=== PATIENT | female | born 1970 | race Caucasian/White ===

== ENCOUNTER 2018-06-07 08:49 | Inpatient (IN) ==
[2018-06-07] MEDS ORDERED: HydrALAZINE HCL 20 MG/ML VIAL IV PRN (09:00)
--- NOTE | 2018-06-07 09:12 | CT Scan Report ---
CT head/brain wo con CLINICAL HISTORY: Pt c/o facial droop COMPARISON STUDY: No previous studies for comparison. TECHNIQUE: Axial CT of the brain is performed from the vertex to the skull base. IV contrast was not administered for this examination. A dose lowering technique was utilized adhering to the principles of ALARA. CT DOSE: 788.63 mGycm FINDINGS: No intra or extra-axial mass lesions are visualized. There is no CT evidence of acute cortical infarc tion. There is no evidence of midline shift. There is no acute hemorrhage. No calvarial fractures ar e visualized. There are patchy white matter hypodensities likely on a small vessel basis. There is no evidence of pathologic ventricular dilatation. There is a probable lacunar infarct in the left lentiform nucleus. There are minor inflammatory changes within the ethmoid sinuses. IMPRESSION: 1. No acute intracranial findings 2. White matter disease slightly greater than expected given the patient's age 3. Suspected lacunar infarct within the left basal ganglia 4. No evidence of acute hemorrhage 5. If symptoms persist, an MRI the brain might be considered in follow-up. Electronically signed by: Alejandro Estes M.D. 06/07/2018 9:10 AM
[2018-06-07] MEDS ORDERED: RECOMBINANT IV STA ×2 (09:16)
[2018-06-07] MEDS ORDERED: ALTEPLASE For Stroke IV STA (09:16)
[2018-06-07] MEDS ORDERED: ALTEPLASE IV STA ×2 (09:16)
[2018-06-07] MEDS ORDERED: ASPIRIN CHEW 324 MG PO STA (09:20)
[2018-06-07] MEDS: LABETALOL HCL IV 5 MG/ML 20ML IV PRN ×2 (09:21→12:23)
[2018-06-07] MEDS ORDERED: OPTIRAY 320 125ml IV PRN (09:21)
[2018-06-07 09:22] LABS: Basophils # (auto) 0.02 K/uL (0-0.2); Basophils % (auto) 0.2 %; Eosinophils # (auto) 0.14 K/uL (0-0.5); Eosinophils % (auto) 1.2 %; Hematocrit (blood only) 44.6 % (37-47); Hemoglobin 15.4 g/dL (12.0-16.0); Immature Granulocytes # (auto) 0.03 K/uL (0.00-0.02); Immature Granulocytes % (auto) 0.3 %; Lymphocytes # (auto) 2.68 K/uL (1.2-3.4); Lymphocytes % (auto) 23.9 %; Mean Corpuscular Hgb Conc 34.5 g/dL (32-36); Mean Corpuscular Volume 93.3 fL (80-100); Mean Platelet Volume 10.5 fL (7.4-10.4); Monocytes # (auto) 0.68 K/uL (0.11-0.59); Monocytes % (auto) 6.1 %; Neutrophils # (auto) 7.68 K/uL (1.4-6.5); Neutrophils % (auto) 68.3 %; Platelet Count 242 K/uL (130-400); RDW Standard Deviation 44.6 fL (36.4-46.3); Red Blood Count 4.78 M/uL (4.2-5.4); White Blood Count 11.23 K/uL (4.8-10.8)
[2018-06-07] MEDS ORDERED: MAGNESIUM SULFATE / D5W 1 GM/100 ML BAG IV ONE (09:26)
--- NOTE | 2018-06-07 09:34 | XRay Report ---
XR chest 1V portable CLINICAL HISTORY: Pt c/o AMS dyspnea COMPARISON STUDY: No previous studies for comparison. FINDINGS: The bones soft tissues and hemidiaphragms are normal. The cardiomediastinal silhouette is n ormal. The lungs are clear. The pulmonary vasculature is normal. IMPRESSION: Negative chest. The above report was generated using voice recognition software. It may contain grammatical, syntax or spelling errors. Electronically signed by: Jerald Villavicencio M.D. 06/07/2018 9:33 AM
--- NOTE | 2018-06-07 09:36 | CT Scan Report ---
HEAD & NECK CTA HISTORY: Altered mental status. TECHNIQUE: Multiaxial CT images of the head were performed following the intravenous administration o f contrast to evaluate the major cerebral vessels. Multiaxial CT images of the neck were also perform ed following the intravenous administration of contrast to evaluate the major cervical vessels. Maxim um intensity projection images were also obtained. A dose lowering technique was utilized adhering to the principles of ALARA. COMPARISON: Head CT 06/07/2018. FINDINGS: There is no mass, hematoma, midline shift, or acute infarct. Visualized intracranial internal carotid artery, distal vertebral arteries, and basilar artery are widely patent. There is no significant gia nosis, occlusion, or aneurysm seen within the bilateral ACAs, MCAs, or figure clerk. The major dural venous s inuses appear patent. Incidental note is made of a single A2 segment which is considered a normal ivonne iant. Mild narrowing of approximately 30 % within the proximal portion of the cavernous segment of th e left internal carotid artery due to the noncalcified plaque. The aortic arch and proximal great vessels are widely patent. There is no significant stenosis, occ lusion, or dissection identified within the bilateral common carotid, internal carotid, or vertebral arteries. There is 1.5 cm right parotid gland nodule. The lungs are clear. Slightly hypoplastic right vertebral artery. IMPRESSION: 1. No significant stenosis, occlusion, or aneurysm within the [place]. 2. Mild narrowing within the proximal portion of the cavernous segment of the left internal carotid a rtery. Otherwise, no significant stenosis, occlusion, or dissection identified within the remaining c arotid or vertebral arteries. 3. A 1.5 cm right parotid gland nodule. Follow-up nonemergent ENT consultation recommended for [facility] evaluation. Electronically signed by: Chico Hansen M.D. 06/07/2018 9:35 AM
--- NOTE | 2018-06-07 09:36 | CT Scan Report ---
HEAD & NECK CTA HISTORY: Altered mental status. TECHNIQUE: Multiaxial CT images of the head were performed following the intravenous administration o f contrast to evaluate the major cerebral vessels. Multiaxial CT images of the neck were also perform ed following the intravenous administration of contrast to evaluate the major cervical vessels. Maxim um intensity projection images were also obtained. A dose lowering technique was utilized adhering to the principles of ALARA. COMPARISON: Head CT 06/07/2018. FINDINGS: There is no mass, hematoma, midline shift, or acute infarct. Visualized intracranial internal carotid artery, distal vertebral arteries, and basilar artery are widely patent. 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 The major dural venous s inuses appear patent. Incidental note is made of a single A2 segment which is considered a normal ivonne iant. Mild narrowing of approximately 30 % within the proximal portion of the cavernous segment of th e left internal carotid artery due to the noncalcified plaque. The aortic arch and proximal great vessels are widely patent. There is no significant stenosis, occ lusion, or dissection identified within the bilateral common carotid, internal carotid, or vertebral arteries. There is 1.5 cm right parotid gland nodule. The lungs are clear. Slightly hypoplastic right vertebral artery. IMPRESSION: 1. No significant stenosis, occlusion, or aneurysm within the [place]. 2. Mild narrowing within the proximal portion of the cavernous segment of the left internal carotid a rtery. Otherwise, no significant stenosis, occlusion, or dissection identified within the remaining c arotid or vertebral arteries. 3. A 1.5 cm right parotid gland nodule. Follow-up nonemergent ENT consultation recommended for [facility] evaluation. Electronically signed by: Chico Hansen M.D. 06/07/2018 9:35 AM
[2018-06-07 09:37] LABS: Partial Thromboplastin Time 27.6 Seconds (21.0-31.0); Prothrombin Time 9.8 Seconds (9.0-12.0)
[2018-06-07 09:39] LABS: Alanine Aminotransferase 26 U/L (12-78); Albumin Level 3.9 gm/dl (3.4-5.0); Aspartate Aminotransferase 13 U/L (15-37); BUN Creatinine Ratio 18.6 (10-20); Blood Urea Nitrogen 19 mg/dl (7-18); Calcium 9.2 mg/dl (8.5-10.1); Carbon Dioxide 28 mmol/L (21-32); Chloride 107 mmol/L (98-107); Creatinine Clr Calc Pharmacy 80.6 ml/min; Est GFR (African American) 76.4; Est GFR (Non-African American) 65.9; Glucose 104 mg/dl (70-99); Magnesium 2.2 mg/dl (1.8-2.4); Sodium 139 mmol/L (136-145)
[2018-06-07 09:44] LABS: Albumin Globulin Ratio 0.9 (0.9-2); Alkaline Phosphatase 111 U/L (45-117); Bilirubin,Total 0.2 mg/dl (0.2-1); Creatine Kinase MB < 1.0 ng/ml (0.5-3.6); Globulin 4.2 gm/dl (2.5-4.0); Total Protein 8.1 gm/dl (6.4-8.2); Troponin I < 0.015 ng/ml (0-0.045)
--- NOTE | 2018-06-07 09:52 | History & Physical Report ---
Date of Service June 07, 2018 Assessment & Plan (1) Stroke: - Stroke order set completed - L. Lacunar infarct within the L basal ganglia is suspected on CT, CTA head and neck completed - Neuro consulted - Check A1C - Recent lipid panel was done on 06/03/18: total cholesterol =257, Triglycerides = 237, HDL =41, LDL 169, VLDL=47, cholesterol HDL ratio = 6 - Continue asa 81 mg - start atorvastatin 40 mg daily - Allow permissive HTN for now but goal should be SBP 160-180/90-110 until other recs per Neurology. - Continue neuro checks q2H and prn - PT/OT for gait disturbance (2) Benign essential HTN: - Continue to attempt HTN control with lebatolol 5 mg IV prn. Continue lisinopril/HCTZ for now. - ASA 81 mg - Discussed exercise regimen initiation - EKG reviewed and no signs of acute ischemia or ST wave changes - Hx of migraines and headaches likely due to uncontrolled HTN, currently pt denies SALAS, following during inpatient stay. Pt will need follow up closely for HTN. (3) Obesity (BMI 30.0-34.9): - Diet and exercise recommended (4) Tobacco use: - Cessation encouraged - Nicotine patch ordered - Smoked 1/2 ppd since age 13. (5) DVT prophylaxis: - teds, scds History of Present Illness Chief Complaint: Unsteady gait, slurred speech, facial droop Primary Care Provider: Nayana Peralta PA-C This is a 47 yo F with PMHx of newly diagnosed HTN, obesity with BMI of 33.2, tobacco use of 1/2 ppd since age 13, who presents with new onset of stroke like sx which started yesterday at noon. Pt notes developing increased fatigue on 06/06, and felt weak all over so pt went to bed early. This morning upon waking up she had difficulty getting up out of bed and walking. She called her sister, who is present at the bedside, and then realized that her speech was slurred. Her sister presented to her house and noticed her facial droop on the left side, unsteady gait and slurred speech. She did not eat anything this morning and came directly to the ER. The patient was seen as a new pt by Nayana Pereira on Sunday. 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 She has not been following with an outpatient provider for many years prior to this. Pt notes she has had headaches for years and had "kept it at bay with tylenol". She has been taking a baby aspirin for many years for unknown reasons. CT reveals small L. lacunar infarct within the Left basal ganglia. Allergies Allergy/AdvReac Type Severity Reaction Status Date / Time No Known Allergies Allergy Unknown Verified 06/07/18 09:57 Home Medications Home Medications Medication Instructions Recorded Confirmed Type Tumeric 500 mg PO BID 06/07/18 06/07/18 History aspirin 81 mg PO QAM 06/07/18 06/07/18 History lisinopril-hydrochlorothiazide 1 tab PO QAM 06/07/18 06/07/18 History Past Med/Surg History Medical History Tobacco use Stroke Obesity (BMI 30.0-34.9) Benign essential HTN No significant medical problems (Chronic) Surgical History History of hysterectomy (Resolved) No history of previous surgery (Resolved) Social History Preferred Language: Micronesian Communication Ability: Effective Tail Puller Required: No Beliefs That Will Affect Care: None Current Living Situation: Alone current occupational status: employed Other Information That Helps Us Care for You: No Feels Safe at Home: Yes Safety Concerns: Feels Safe At This Time Smoking Status: Current every day smoker Hx Alcohol Use: Yes Hx Substance Use: No Review of Systems Constitutional: No fever, sweats or chills, + headache Eyes: No diplopia, no worsening or blurred vision ENT: normal hearing, no trouble swallowing Respiratory: No cough, sputum, dyspnea at rest or on exertion Cardiovascular: No chest pain, tightness or palpitations Abdomen: No pain, nausea, vomiting, diarrhea or constipation Musculoskeletal: No joint pain, calf pain, swelling Neurologic: + slurred speech, + left facial droop, No numbness/tingling. Gait unsteadiness. Psychiatric: No anxiety or depression Skin: No rash or itch Physical Exam Vital Signs (Past 24 Hours): Last Vital Signs Temp 36.6 C 06/07/18 08:51 Pulse 118 H 06/07/18 08:51 Resp 18 03/29/19 08:51 BP 217/135 H 06/07/18 08:51 Pulse Ox 99 06/07/18 08:51 Physical Exam: General: awake, alert, no apparent distress, + obesity Head: Normocephalic, atraumatic ENT: PERRL, EOMI, no pharyngeal exudate, mucous membranes moist Chest: Clear to auscultation, on room air, no adventitious breath sounds Cardiac: Regular rate and rhythm, no murmur, no JVD, normal peripheral pulses, good capillary refill Abdominal: NABS x 4 quadrants, soft, nontender to palpation, no rebound, guarding or tenderness Extremities: Normal inspection, no peripheral edema or erythema, calfs nontender to palpation Psych: Normal mood and affect Neuro: AAO x 3, strength intact bilaterally and related 5/5, + slurred speech, + left facial droop with inability to smile and wrinkle forehead on the left, no weakness of the upper or lower extremities, negative pronator drift, able to complete rapid alternating movements, heel to morales testing. No numbness/tingling. Gait not assessed due to gait unsteadiness. no peripheral sensory deficits Results & Data Diagnostic Findings HEAD & NECK CTA HISTORY: Altered mental status. TECHNIQUE: Multiaxial CT images of the head were performed following the intravenous administration of contrast to evaluate the major cerebral vessels. Multiaxial CT images of the neck were also performed following the intravenous administration of contrast to evaluate the major cervical vessels. Maximum intensity projection images were also obtained. A dose lowering technique was ut ilized adhering to the principles of ALARA. COMPARISON: Head CT 06/07/2018. FINDINGS: There is no mass, hematoma, midline shift, or acute infarct. Visualized intracranial internal carotid artery, distal vertebral arteries, and basilar artery are widely patent. There is no significant stenosis, occlusion, or aneurysm seen within the bilateral ACAs, MCAs, or truck guard. The major dural venous sinuses appear patent. Incidental note is made of a single A2 segment which is considered a normal variant. Mild narrowing of approximately 30 % within the proximal portion of the cavernous segment of the left internal carotid artery due to the noncalcified plaque. The aortic arch and proximal great vessels are widely patent. There is no significant stenosis, occlusion, or dissection identified within the bilateral common carotid, internal carotid, or vertebral arteries. There is 1.5 cm right parotid gland nodule. The lungs are clear. Slightly hypoplastic right vertebral artery. IMPRESSION: 1. No significant stenosis, occlusion, or aneurysm within the [place]. 2. Mild narrowing within the proximal portion of the cavernous segment of the left internal carotid artery. Otherwise, no significant stenosis, occlusion, or dissection identified within the remaining carotid or vertebral arteries. 3. A 1.5 cm right parotid gland nodule. Follow-up nonemergent ENT consultation recommended for further evaluation. CT head/brain wo con CLINICAL HISTORY: Pt c/o facial droop COMPARISON STUDY: No previous studies for comparison. TECHNIQUE: Axial CT of the brain is performed from the vertex to the skull base. IV contrast was not administered for this examination. A dose lowering technique was utilized adhering to the principles of ALARA. CT DOSE: 788.63 mGycm FINDINGS: No intra or extra-axial mass lesions are visualized. There is no CT evidence of acute cortical infarction. There is no evidence of midline shift. There is no acute hemorrhage. No calvarial fractures are visualized. There are patchy white matter hypodensities likely on a small vessel basis. There is no evidence of pathologic ventricular dilatation. There is a probable lacunar infarct in the left lentiform nucleus. There are minor inflammatory changes within the ethmoid sinuses. IMPRESSION: 1. No acute intracranial findings 2. White matter disease slightly greater than expected given the patient's age 3. Suspected lacunar infarct within the left basal ganglia 4. No evidence of acute hemorrhage 5. If symptoms persist, an MRI the brain might be considered in follow-up. ECG Additional Comments: 07-JUN-2018 09:22:22 [facility] Normal sinus rhythm Normal ECG When compared with ECG of 05-MAY-1999 04:23, No significant change was found 25mm/s 10mm/mV 150Hz 8.0 SP2 12SL 241 HD RAZ: 12 Referred by: REFERRED SELF Unconfirmed Vent. rate 98 BPM NC interval 130 ms QRS duration 88 ms QT/QTc 372/474 ms P-R-T axes 47 19 31 Code Status & VTE Plan Code Status Full Code Supervising Physician Co-Signing Physician Notes Patient seen and examined, chart reviewed, case discussed with MARIA EUGENIA Everett and I agree with her assessment and plan as documented above. Briefly, patient is a 47yo female smoker with history of newly diagnosed severe HTN, migraine and obesity presenting with new ischemic CVA - lacunar infarct of left basal ganglia. Patient with weakness and fatigue yesterday, difficulty walking and speaking today with left facial droop. On exam she is afebrile, hypertensive otherwise stable, NAD Patient with notable left facial droop and tongue deviation Remainder of exam normal Labs and images reviewed. Assessment/Plan: 47yo female with HTN, tobacco abuse presents with new ischemic CVA -Admit to PCU, neuro checks, ASA and statin, allow for permissive hypertension -Neurology consultation - appreciate assistance with this case -PT/OT/Speech evaluation -Remainder of plan as above
[2018-06-07] MEDS ORDERED: PHARMACIST DISCHARGE MED REC CONSULT PRN (09:58)
[2018-06-07 09:59] LABS: Pregnancy Test, Serum Negative (Negative)
[2018-06-07 10:08] LABS: Appearance Urine Clear (Clear); Bilirubin Urine Negative (Negative); Blood Urine Negative (Negative); Color Urine Yellow; Glucose Urine UA Negative (Negative); Ketones Urine Negative (Negative); Leukocyte Esterase Urine Negative (Negative); Nitrite Urine Negative (Negative); Protein Urine Negative (Negative); Urobilinogen Urine Negative (Negative)
[2018-06-07 10:44] LABS: Amphetamines+Metham, Urine Neg (Neg); Barbiturates, Urine Neg (Neg); Benzodiazepine, Urine Neg (Neg); Cocaine, Urine Neg (Neg); MDMA (Ecstacy), Urine Neg (Neg); Methadone, Urine Neg (Neg); Opiate, Urine Neg (Neg); Phencyclidine, Urine Neg (Neg)
[2018-06-07 11:40] LABS: Estimated Average Glucose 114 mg/dl; Hemoglobin A1C 5.6 % (4.5-5.6)
[2018-06-07] MEDS: ACETAMINOPHEN 325 MG TAB PO PRN ×2 (12:30→20:36)
[2018-06-07] MEDS: NICOTINE 14 MG/24 HR PATCH TD SCH (13:42)
--- NOTE | 2018-06-07 14:44 | Emergency Department Note ---
Entered by Jaqueline Sethi acting as a scribe for Guy Hargrove MD History of Present Illness General Chief complaint: Neuro Symptoms/Deficit Stated complaint: STROKE SYMPTOMS Time Seen by Provider: 06/07/18 08:56 Source: patient and family Mode of arrival: ambulatory History of Present Illness Onset (ago): hour(s) (1200 yesterday) Location: head (stroke symptoms) Pain Consistency: + other (worsening) Maximum Pain Intensity: 0 Quality: + other (stroke symptoms) Associated symptoms: + other (. She notes that the patient sounded like she was drunk, could not walk, and could not keep her balance. Per triage note, the patient states that she cant walk, everything is blurry, she cant talk, has slurred speech, and has left facial drooping. Per sister, the patient lost her bowels today. ) The patient is a 47 year old female who presents to the ED with complaints of worsening stroke symptoms that onset around 1200 yesterday. Per sister, the patient went home from work yesterday thinking that her blood pressure was too high. She states that the patient slept after she went home. The patients sister notes that she then went to her house. She notes that the patient sounded like she was drunk, could not walk, and could not keep her balance. Per triage note, the patient states that she cant walk, everything is blurry, she cant talk, has slurred speech, and has left facial drooping. Her sister states that she normally has left facial dropping secondary to [place] Palsy but it is more pronounced today. Per sister, the patient lost her bowels today. The patient complains of numbness and tingling all over her body. The patient is a current every day smoker. She denies taking any aspiring. The patient was in the ED 1 week ago for hypertension. Home Medications Home Medications Medication Instructions Recorded Confirmed Type Tumeric 500 mg PO BID 06/07/18 06/07/18 History aspirin 81 mg PO QAM 06/07/18 06/07/18 History lisinopril-hydrochlorothiazide 1 tab PO QAM 06/07/18 06/07/18 History Allergies Allergy/AdvReac Type Severity Reaction Status Date / Time No Known Allergies Allergy Unknown Verified 06/07/18 09:57 Past Med/Surg History Medical History Tobacco use Stroke Obesity (BMI 30.0-34.9) Benign essential HTN No significant medical problems (Chronic) Surgical History History of hysterectomy (Resolved) No history of previous surgery (Resolved) Social History Preferred Language: Jordanian Communication Ability: Effective Core Piler Required: No Beliefs That Will Affect Care: None Current Living Situation: Alone current occupational status: employed Other Information That Helps Us Care for You: No Feels Safe at Home: Yes Safety Concerns: Feels Safe At This Time Smoking Status: Current every day smoker Hx Alcohol Use: Yes Hx Substance Use: No Review of Systems See HPI for pertinent positives & negatives. and A total of 10 systems reviewed and were otherwise negative Physical Exam Vital Signs Vital Signs - 24 hr 06/07/18 08:51 06/07/18 09:18 06/07/18 09:19 Temperature 36.6 C Temperature Source Oral Sepsis Recent Fever Within 48 Hours No Sepsis New/Unexplained Change in Mental Status No Sepsis Action Taken by Nursing No Action Required Pulse Rate 118 H 111 H 105 H Pulse Rate [Right Brachial] Pulse Rate from SpO2 Sensor 104 H Pulse Rhythm [Right Brachial] Pulse Strength [Right Brachial] Respiratory Rate 18 18 Respiratory Effort / Characteristics Non-Labored Spontaneous Respiratory Depth Normal Respiratory Pattern Regular Blood Pressure 217/135 H 219/143 H Blood Pressure [Left Arm] Blood Pressure Mean 162 168 Blood Pressure Mean [Left Arm] Blood Pressure Position Sitting Blood Pressure Position [Left Arm] Pulse Oximetry 99 97 Oxygen Delivery Method Room Air 06/07/18 09:20 06/07/18 09:27 06/07/18 09:30 Temperature Temperature Source Sepsis Recent Fever Within 48 Hours Sepsis New/Unexplained Change in Mental Status Sepsis Action Taken by Nursing Pulse Rate 102 H 93 H 90 Pulse Rate [Right Brachial] Pulse Rate from SpO2 Sensor 103 H 89 90 Pulse Rhythm [Right Brachial] Pulse Strength [Right Brachial] Respiratory Rate 16 21 18 Respiratory Effort / Characteristics Respiratory Depth Respiratory Pattern Blood Pressure 207/138 H Blood Pressure [Left Arm] Blood Pressure Mean 161 Blood Pressure Mean [Left Arm] Blood Pressure Position Blood Pressure Position [Left Arm] Pulse Oximetry 100 96 99 Oxygen Delivery Method 06/07/18 09:32 06/07/18 09:36 06/07/18 09:40 Temperature Temperature Source Sepsis Recent Fever Within 48 Hours Sepsis New/Unexplained Change in Mental Status Sepsis Action Taken by Nursing Pulse Rate 86 89 93 H Pulse Rate [Right Brachial] Pulse Rate from SpO2 Sensor 88 90 92 H Pulse Rhythm [Right Brachial] Pulse Strength [Right Brachial] Respiratory Rate 21 16 14 Respiratory Effort / Characteristics Respiratory Depth Respiratory Pattern Blood Pressure 202/144 H 189/130 H Blood Pressure [Left Arm] Blood Pressure Mean 163 149 Blood Pressure Mean [Left Arm] Blood Pressure Position Blood Pressure Position [Left Arm] Pulse Oximetry 99 99 100 Oxygen Delivery Method 06/07/18 09:41 06/07/18 09:46 06/07/18 09:50 Temperature Temperature Source Sepsis Recent Fever Within 48 Hours Sepsis New/Unexplained Change in Mental Status Sepsis Action Taken by Nursing Pulse Rate 90 94 H 93 H Pulse Rate [Right Brachial] Pulse Rate from SpO2 Sensor 90 92 H Pulse Rhythm [Right Brachial] Pulse Strength [Right Brachial] Respiratory Rate 19 20 19 Respiratory Effort / Characteristics Respiratory Depth Respiratory Pattern Blood Pressure 168/121 H 166/124 H Blood Pressure [Left Arm] Blood Pressure Mean 136 138 Blood Pressure Mean [Left Arm] Blood Pressure Position Blood Pressure Position [Left Arm] Pulse Oximetry 99 99 Oxygen Delivery Method 06/07/18 09:51 06/07/18 10:00 06/07/18 10:01 Temperature Temperature Source Sepsis Recent Fever Within 48 Hours Sepsis New/Unexplained Change in Mental Status Sepsis Action Taken by Nursing Pulse Rate 90 87 88 Pulse Rate [Right Brachial] Pulse Rate from SpO2 Sensor 92 H 86 87 Pulse Rhythm [Right Brachial] Pulse Strength [Right Brachial] Respiratory Rate 15 17 19 Respiratory Effort / Characteristics Respiratory Depth Respiratory Pattern Blood Pressure 180/121 H 168/125 H Blood Pressure [Left Arm] Blood Pressure Mean 140 139 Blood Pressure Mean [Left Arm] Blood Pressure Position Blood Pressure Position [Left Arm] Pulse Oximetry 100 99 100 Oxygen Delivery Method 06/07/18 10:10 06/07/18 10:12 06/07/18 10:16 Temperature Temperature Source Sepsis Recent Fever Within 48 Hours Sepsis New/Unexplained Change in Mental Status Sepsis Action Taken by Nursing Pulse Rate 85 96 H 86 Pulse Rate [Right Brachial] Pulse Rate from SpO2 Sensor 85 95 H 86 Pulse Rhythm [Right Brachial] Pulse Strength [Right Brachial] Respiratory Rate 15 15 Respiratory Effort / Characteristics Respiratory Depth Respiratory Pattern Blood Pressure 201/127 H 184/140 H Blood Pressure [Left Arm] Blood Pressure Mean 151 154 Blood Pressure Mean [Left Arm] Blood Pressure Position Blood Pressure Position [Left Arm] Pulse Oximetry 98 99 98 Oxygen Delivery Method 06/07/18 10:17 06/07/18 10:20 06/07/18 10:21 Temperature Temperature Source Sepsis Recent Fever Within 48 Hours Sepsis New/Unexplained Change in Mental Status Sepsis Action Taken by Nursing Pulse Rate 86 93 H 85 Pulse Rate [Right Brachial] Pulse Rate from SpO2 Sensor 87 91 H 85 Pulse Rhythm [Right Brachial] Pulse Strength [Right Brachial] Respiratory Rate 17 17 14 Respiratory Effort / Characteristics Respiratory Depth Respiratory Pattern Blood Pressure 180/125 H Blood Pressure [Left Arm] Blood Pressure Mean 143 Blood Pressure Mean [Left Arm] Blood Pressure Position Blood Pressure Position [Left Arm] Pulse Oximetry 98 97 98 Oxygen Delivery Method 06/07/18 10:26 06/07/18 10:30 06/07/18 10:31 Temperature Temperature Source Sepsis Recent Fever Within 48 Hours Sepsis New/Unexplained Change in Mental Status Sepsis Action Taken by Nursing Pulse Rate 88 88 83 Pulse Rate [Right Brachial] Pulse Rate from SpO2 Sensor 84 86 84 Pulse Rhythm [Right Brachial] Pulse Strength [Right Brachial] Respiratory Rate 12 18 12 Respiratory Effort / Characteristics Respiratory Depth Respiratory Pattern Blood Pressure 140/130 H 177/113 H Blood Pressure [Left Arm] Blood Pressure Mean 133 134 Blood Pressure Mean [Left Arm] Blood Pressure Position Blood Pressure Position [Left Arm] Pulse Oximetry 98 99 97 Oxygen Delivery Method 06/07/18 10:36 06/07/18 10:40 06/07/18 10:41 Temperature Temperature Source Sepsis Recent Fever Within 48 Hours Sepsis New/Unexplained Change in Mental Status Sepsis Action Taken by Nursing Pulse Rate 80 88 94 H Pulse Rate [Right Brachial] Pulse Rate from SpO2 Sensor 80 90 89 Pulse Rhythm [Right Brachial] Pulse Strength [Right Brachial] Respiratory Rate 16 12 Respiratory Effort / Characteristics Respiratory Depth Respiratory Pattern Blood Pressure 182/140 H 183/121 H Blood Pressure [Left Arm] Blood Pressure Mean 154 141 Blood Pressure Mean [Left Arm] Blood Pressure Position Blood Pressure Position [Left Arm] Pulse Oximetry 99 95 98 Oxygen Delivery Method 06/07/18 10:46 06/07/18 11:54 06/07/18 12:33 Temperature 36.7 C Temperature Source Oral Sepsis Recent Fever Within 48 Hours Sepsis New/Unexplained Change in Mental Status Sepsis Action Taken by Nursing Pulse Rate 90 Pulse Rate [Right Brachial] Pulse Rate from SpO2 Sensor 93 H Pulse Rhythm [Right Brachial] Pulse Strength [Right Brachial] Respiratory Rate 19 18 Respiratory Effort / Characteristics Non-Labored Respiratory Depth Normal Respiratory Pattern Regular Blood Pressure 182/122 H Blood Pressure [Left Arm] 178/122 H 186/133 H Blood Pressure Mean 142 Blood Pressure Mean [Left Arm] 140 150 Blood Pressure Position Blood Pressure Position [Left Arm] Lying Lying Pulse Oximetry 100 95 Oxygen Delivery Method Room Air 06/07/18 13:07 06/07/18 13:43 Temperature Temperature Source Sepsis Recent Fever Within 48 Hours Sepsis New/Unexplained Change in Mental Status Sepsis Action Taken by Nursing Pulse Rate Pulse Rate [Right Brachial] 84 Pulse Rate from SpO2 Sensor Pulse Rhythm [Right Brachial] Regular Pulse Strength [Right Brachial] Normal Respiratory Rate Respiratory Effort / Characteristics Respiratory Depth Respiratory Pattern Blood Pressure Blood Pressure [Left Arm] 146/102 H 149/105 H Blood Pressure Mean Blood Pressure Mean [Left Arm] 116 119 Blood Pressure Position Blood Pressure Position [Left Arm] Lying Lying Pulse Oximetry Oxygen Delivery Method GENERAL: Awake, alert, well-appearing, in no distress HENT: Normocephalic, atraumatic. Oropharynx unremarkable. EYES: Normal conjunctiva. Sclera non-icteric. NECK: Supple. No nuchal rigidity. FROM. No masses. RESPIRATORY: Clear to auscultation. No wheezes. No rales. Normal respiratory effort. CARDIAC: Normal rate. Normal rhythm. No murmurs. No rubs. Extremities warm and well perfused. Pulses equal. No JVD. GI: Soft, non-distended. No tenderness to palpation. No rebound or guarding. No masses. RECTAL: Deferred. MUSCULOSKELETAL: Atraumatic. Chest examination reveals no tenderness. The back is symmetrical on inspection without obvious abnormality. There is no CVA tenderness to palpation. No joint edema. LOWER EXTREMITIES: Calves are equal size bilaterally and non-tender. No edema. No discoloration. NEURO: Left facial droop. 4-5 strength in the left leg. Course 0856: Past medical records reviewed. The patient was evaluated in room A1, and a complete history and physical examination were performed. 0987: I reviewed the patient's case with Dr. Gentile - Neurology. He agrees with the plan and states to admit the patient. 0944: I reviewed the patient's case with Erin Everett PA-C. She will evaluate the patient for further management. Consultations Consultation #1: [id number]: I reviewed the patient's case with Dr. Gentile - Neurology. He agrees with the plan and states to admit the patient. Time: :27 Consultation #2: [id number]: I reviewed the patient's case with Erin Everett PA-C. She will evaluate the patient for further management. Time: :44 Administered Medications Acetaminophen (Tylenol) 650 mg PO Q4H PRN PRN Reason: Pain Stop: 07/07/18 12:18 Last Admin: 06/07/18 12:30 Dose: 650 mg Documented by: [id number] Nicotine (Nicoderm Cq) 14 mg TD QAM STEPHANIE Stop: 07/07/18 12:29 Last Admin: 06/07/18 13:42 Dose: 14 mg Documented by: [id number] Discontinued Medications Aspirin (Aspirin) 324 mg PO NOW STA Stop: 06/07/18 09:21 Last Admin: 06/07/18 09:28 Dose: 324 mg Documented by: [id number] Hydralazine HCl (Hydralazine Hcl) 10 mg IV Q20M PRN PRN Reason: SBP above 185 or DBP above 110 Last Admin: 06/07/18 09:20 Dose: 10 mg Documented by: [id number] Nicardipine HCl 25 mg/ Sodium (Chloride) 250 mls @ 50 mls/hr IV .Q5H STEPHANIE; Protocol Stop: 07/07/18 09:14 Last Admin: 06/07/18 12:19 Dose: Not Given Documented by: [id number] Titration: 06/07/18 09:50 Dose: 0 mg/hr, 0 mls/hr Documented by: [id number] Admin: 06/07/18 09:28 Dose: 5 mg/hr, 50 mls/hr Documented by: [id number] Cosigned by: [id number] Magnesium Sulfate/Dextrose (Magnesium Sulfate / D5w) 1 gm in 100 mls @ 100 mls/hr IV ONE ONE Stop: 06/07/18 10:25 Last Infusion: 06/07/18 10:30 Dose: 0 mls/hr Documented by: [id number] Admin: 06/07/18 09:32 Dose: 100 mls/hr Documented by: [id number] Ioversol (Optiray 320 125ml) 119 ml IV ONCE PRN PRN Reason: Interaction Checking Stop: 06/11/18 09:20 Last Admin: 06/07/18 09:21 Dose: 119 ml Documented by: [id number] Labetalol HCl (Normodyne) 10 mg IV Q10M PRN PRN Reason: SBP above 185 or DBP above 110 Last Admin: 06/07/18 12:23 Dose: 10 mg Documented by: [id number] Cosigned by: [id number] Admin: 06/07/18 09:21 Dose: 10 mg Documented by: [id number] Cosigned by: [id number] Medical Decision Making Differential Diagnosis Differential Diagnosis: Ischemic Stroke, hemorrhagic stroke, bells palsy, mass, neoplasm, migraine headache, seizure, subarachnoid hemorrhage, TIA, and transient global amnesia. Medical Records Attestation: I reviewed the patient's medical records. Home Medications Current Medication List: was personally reviewed by me Laboratory Data Attestation: I reviewed the patient's lab results. Result diagrams: 06/07/18 09:00 06/07/18 09:00 Lab Results 06/07/18 06/07/18 06/07/18 Range/Units 09:00 09:00 09:00 WBC 11.23 H (4.8-10.8) K/uL RBC 4.78 (4.2-5.4) M/uL Hgb 15.4 (12.0-16.0) g/dL Hct 44.6 (37-47) % MCV 93.3 (80-100) fL MCH 32.2 (25-34) pg MCHC 34.5 (32-36) g/dL RDW Std Deviation 44.6 (36.4-46.3) fL RDW Coeff of Chuck 13.0 (11.5-14.5) % Plt Count 242 (130-400) K/uL MPV 10.5 H (7.4-10.4) fL Immature Gran % (Auto) 0.3 % Neut % (Auto) 68.3 % Lymph % (Auto) 23.9 % [place] % (Auto) 6.1 % Eos % (Auto) 1.2 % Baso % (Auto) 0.2 % Immature Gran # (Auto) 0.03 H (0.00-0.02) K/uL Neut # (Auto) 7.68 H (1.4-6.5) K/uL Lymph # (Auto) 2.68 (1.2-3.4) K/uL [place] # (Auto) 0.68 H (0.11-0.59) K/uL Eos # (Auto) 0.14 (0-0.5) K/uL Baso # (Auto) 0.02 (0-0.2) K/uL PT 9.8 (9.0-12.0) Seconds INR 1.0 (0.9-1.1) APTT 27.6 (21.0-31.0) Seconds PTT Ratio 1.0 Sodium 139 (136-145) mmol/L Potassium 4.0 (3.5-5.1) mmol/L Chloride 107 (98-107) mmol/L Carbon Dioxide 28 (21-32) mmol/L Anion Gap 4.0 (3-11) BUN 19 H (7-18) mg/dl Creatinine 1.02 (0.6-1.2) mg/dl Est Cr Clr Drug Dosing 80.6 ml/min Est GFR ( Amer) 76.4 Est GFR (Non-Af Amer) 65.9 BUN/Creatinine Ratio 18.6 (10-20) Glucose 104 H (70-99) mg/dl POC Glucose (70-99) Estimat Average Glucose mg/dl Hemoglobin A1c (4.5-5.6) % Calcium 9.2 (8.5-10.1) mg/dl Magnesium 2.2 (1.8-2.4) mg/dl Total Bilirubin 0.2 (0.2-1) mg/dl AST 13 L (15-37) U/L ALT 26 (12-78) U/L Alkaline Phosphatase 111 (45-117) U/L CK-MB (CK-2) < 1.0 (0.5-3.6) ng/ml Troponin I < 0.015 (0-0.045) ng/ml Total Protein 8.1 (6.4-8.2) gm/dl Albumin 3.9 (3.4-5.0) gm/dl Globulin 4.2 H (2.5-4.0) gm/dl Albumin/Globulin Ratio 0.9 (0.9-2) HCG, Qual (Negative) Urine Color Urine Appearance (Clear) Urine pH (4.5-7.5) Ur Specific [place] (1.000-1.030) Urine Protein (Negative) Urine Glucose (UA) (Negative) Urine Ketones (Negative) Urine Blood (Negative) Urine Nitrite (Negative) Urine Bilirubin (Negative) Urine Urobilinogen (Negative) Ur Leukocyte Esterase (Negative) Urine Opiates Screen (Neg) Ur Methadone, Qual (Neg) Urine Barbiturates (Neg) Ur Phencyclidine (PCP) (Neg) U Amphetamin/Meth Scrn (Neg) MDMA (Ecstasy) Screen (Neg) U Benzodiazepines Scrn (Neg) Ur Cocaine Metabolite (Neg) U Marijuana (THC) Screen (Neg) 06/07/18 06/07/18 06/07/18 Range/Units 09:00 09:00 09:29 WBC (4.8-10.8) K/uL RBC (4.2-5.4) M/uL Hgb (12.0-16.0) g/dL Hct (37-47) % MCV (80-100) fL MCH (25-34) pg MCHC (32-36) g/dL RDW Std Deviation (36.4-46.3) fL RDW Coeff of Chuck (11.5-14.5) % Plt Count (130-400) K/uL MPV (7.4-10.4) fL Immature Gran % (Auto) % Neut % (Auto) % Lymph % (Auto) % [place] % (Auto) % Eos % (Auto) % Baso % (Auto) % Immature Gran # (Auto) (0.00-0.02) K/uL Neut # (Auto) (1.4-6.5) K/uL Lymph # (Auto) (1.2-3.4) K/uL [place] # (Auto) (0.11-0.59) K/uL Eos # (Auto) (0-0.5) K/uL Baso # (Auto) (0-0.2) K/uL PT (9.0-12.0) Seconds INR (0.9-1.1) APTT (21.0-31.0) Seconds PTT Ratio Sodium (136-145) mmol/L Potassium (3.5-5.1) mmol/L Chloride (98-107) mmol/L Carbon Dioxide (21-32) mmol/L Anion Gap (3-11) BUN (7-18) mg/dl Creatinine (0.6-1.2) mg/dl Est Cr Clr Drug Dosing ml/min Est GFR ( Amer) Est GFR (Non-Af Amer) BUN/Creatinine Ratio (10-20) Glucose (70-99) mg/dl POC Glucose 93 (70-99) Estimat Average Glucose 114 mg/dl Hemoglobin A1c 5.6 (4.5-5.6) % Calcium (8.5-10.1) mg/dl Magnesium (1.8-2.4) mg/dl Total Bilirubin (0.2-1) mg/dl AST (15-37) U/L ALT (12-78) U/L Alkaline Phosphatase (45-117) U/L CK-MB (CK-2) (0.5-3.6) ng/ml Troponin I (0-0.045) ng/ml Total Protein (6.4-8.2) gm/dl Albumin (3.4-5.0) gm/dl Globulin (2.5-4.0) gm/dl Albumin/Globulin Ratio (0.9-2) HCG, Qual Negative (Negative) Urine Color Urine Appearance (Clear) Urine pH (4.5-7.5) Ur Specific [place] (1.000-1.030) Urine Protein (Negative) Urine Glucose (UA) (Negative) Urine Ketones (Negative) Urine Blood (Negative) Urine Nitrite (Negative) Urine Bilirubin (Negative) Urine Urobilinogen (Negative) Ur Leukocyte Esterase (Negative) Urine Opiates Screen (Neg) Ur Methadone, Qual (Neg) Urine Barbiturates (Neg) Ur Phencyclidine (PCP) (Neg) U Amphetamin/Meth Scrn (Neg) MDMA (Ecstasy) Screen (Neg) U Benzodiazepines Scrn (Neg) Ur Cocaine Metabolite (Neg) U Marijuana (THC) Screen (Neg) 06/07/18 06/07/18 Range/Units 09:50 09:50 WBC (4.8-10.8) K/uL RBC (4.2-5.4) M/uL Hgb (12.0-16.0) g/dL Hct (37-47) % MCV (80-100) fL MCH (25-34) pg MCHC (32-36) g/dL RDW Std Deviation (36.4-46.3) fL RDW Coeff of Chuck (11.5-14.5) % Plt Count (130-400) K/uL MPV (7.4-10.4) fL Immature Gran % (Auto) % Neut % (Auto) % Lymph % (Auto) % [place] % (Auto) % Eos % (Auto) % Baso % (Auto) % Immature Gran # (Auto) (0.00-0.02) K/uL Neut # (Auto) (1.4-6.5) K/uL Lymph # (Auto) (1.2-3.4) K/uL [place] # (Auto) (0.11-0.59) K/uL Eos # (Auto) (0-0.5) K/uL Baso # (Auto) (0-0.2) K/uL PT (9.0-12.0) Seconds INR (0.9-1.1) APTT (21.0-31.0) Seconds PTT Ratio Sodium (136-145) mmol/L Potassium (3.5-5.1) mmol/L Chloride (98-107) mmol/L Carbon Dioxide (21-32) mmol/L Anion Gap (3-11) BUN (7-18) mg/dl Creatinine (0.6-1.2) mg/dl Est Cr Clr Drug Dosing ml/min Est GFR ( Amer) Est GFR (Non-Af Amer) BUN/Creatinine Ratio (10-20) Glucose (70-99) mg/dl POC Glucose (70-99) Estimat Average Glucose mg/dl Hemoglobin A1c (4.5-5.6) % Calcium (8.5-10.1) mg/dl Magnesium (1.8-2.4) mg/dl Total Bilirubin (0.2-1) mg/dl AST (15-37) U/L ALT (12-78) U/L Alkaline Phosphatase (45-117) U/L CK-MB (CK-2) (0.5-3.6) ng/ml Troponin I (0-0.045) ng/ml Total Protein (6.4-8.2) gm/dl Albumin (3.4-5.0) gm/dl Globulin (2.5-4.0) gm/dl Albumin/Globulin Ratio (0.9-2) HCG, Qual (Negative) Urine Color Yellow Urine Appearance Clear (Clear) Urine pH 7.0 (4.5-7.5) Ur Specific Kimberly 1.010 (1.000-1.030) Urine Protein Negative (Negative) Urine Glucose (UA) Negative (Negative) Urine Ketones Negative (Negative) Urine Blood Negative (Negative) Urine Nitrite Negative (Negative) Urine Bilirubin Negative (Negative) Urine Urobilinogen Negative (Negative) Ur Leukocyte Esterase Negative (Negative) Urine Opiates Screen Neg (Neg) Ur Methadone, Qual Neg (Neg) Urine Barbiturates Neg (Neg) Ur Phencyclidine (PCP) Neg (Neg) U Amphetamin/Meth Scrn Neg (Neg) MDMA (Ecstasy) Screen Neg (Neg) U Benzodiazepines Scrn Neg (Neg) Ur Cocaine Metabolite Neg (Neg) U Marijuana (THC) Screen Neg (Neg) Imaging Data Radiologist's Impression: Radiology results as stated below per my review and the radiologist's interpretation: HEAD & NECK CTA HISTORY: Altered mental status. TECHNIQUE: Multiaxial CT images of the head were performed following the intravenous administration of contrast to evaluate the major cerebral vessels. M ultiaxial CT images of the neck were also performed following the intravenous administration of contrast to evaluate the major cervical vessels. Maximum intensity projection images were also obtained. A dose lowering technique was utilized adhering to the principles of ALARA. COMPARISON: Head CT 06/07/2018. FINDINGS: There is no mass, hematoma, midline shift, or acute infarct. Visualized intr acranial internal carotid artery, distal vertebral arteries, and basilar artery are widely patent. There is no significant stenosis, occlusion, or aneurysm seen within the bilateral ACAs, MCAs, or infantry operations specialist. The major dural venous sinuses appear patent. Incidental note is made of a single A2 segment which is considered a normal variant. Mild narrowing of approximately 30 % within the proximal portion of the cavernous segment of the left internal carotid artery due to the noncalcified plaque. The aortic arch and proximal great vessels are widely patent. There is no significant stenosis, occlusion, or dissection identified within the bilateral common carotid, internal carotid, or vertebral arteries. There is 1.5 cm right parotid gland nodule. The lungs are clear. Slightly hypoplastic right vertebral artery. IMPRESSION: 1. No significant stenosis, occlusion, or aneurysm within the [place]. 2. Mild narrowing within the proximal portion of the cavernous segment of the left internal carotid artery. Otherwise, no significant stenosis, occlusion, or dissection identified within the remaining carotid or vertebral arteries. 3. A 1.5 cm right parotid gland nodule. Follow-up nonemergent ENT consultation recommended for further evaluation. Electronically signed by: Chico Hansen M.D. 06/07/2018 9:35 AM Dictated: 06/07/18922 Transcribed: 06/07/18922 HEAD & NECK CTA HISTORY: Altered mental status. TECHNIQUE: Multiaxial CT images of the head were performed following the intravenous administration of contrast to evaluate the major cerebral vessels. Multiaxial CT images of the neck were also performed following the intravenous administration of contrast to evaluate the major cervical vessels. Maximum intensity projection images were also obtained. A dose lowering technique was utilized adhering to the principles of ALARA. COMPARISON: Head CT 06/07/2018. FINDINGS: There is no mass, hematoma, midline shift, or acute infarct. Visualized intracranial internal carotid artery, distal vertebral arteries, and basilar artery are widely patent. There is no significant stenosis, occlusion, or aneurysm seen within the bilateral ACAs, MCAs, or infantry operations specialist. The major dural venous sinuses appear patent. Incidental note is made of a single A2 segment which is considered a normal variant. Mild narrowing of approximately 30 % within the proximal portion of the cavernous segment of the left internal carotid artery due to the noncalcified plaque. The aortic arch and proximal great vessels are widely patent. There is no significant stenosis, occlusion, or dissection identified within the bilateral common carotid, internal carotid, or vertebral arteries. There is 1.5 cm right parotid gland nodule. The lungs are clear. Slightly hypoplastic right vertebral artery. IMPRESSION: 1. No significant stenosis, occlusion, or aneurysm within the [place]. 2. Mild narrowing within the proximal portion of the cavernous segment of the left internal carotid artery. Otherwise, no significant stenosis, occlusion, or dissection identified within the remaining carotid or vertebral arteries. 3. A 1.5 cm right parotid gland nodule. Follow-up nonemergent ENT consultation recommended for further evaluation. Electronically signed by: Chico Hansen M.D. 06/07/2018 9:35 AM Dictated: 06/07/18922 Transcribed: 06/07/18922 XR chest 1V portable CLINICAL HISTORY: Pt c/o AMS dyspnea COMPARISON STUDY: No previous studies for comparison. FINDINGS: The bones soft tissues and hemidiaphragms are normal. The cardiomediastinal silhouette is normal. The lungs are clear. The pulmonary vasculature is normal. IMPRESSION: Negative chest. The above report was generated using voice recognition software. It may contain grammatical, syntax or spelling errors. Electronically signed by: Jeradl Villavicencio M.D. 06/07/2018 9:33 AM Dictated: 06/07/18932 Transcribed: 06/07/18932 CT head/brain wo con CLINICAL HISTORY: Pt c/o facial droop COMPARISON STUDY: No previous studies for comparison. TECHNIQUE: Axial CT of the brain is performed from the vertex to the skull base. IV contrast was not administered for this examination. A dose lowering technique was utilized adhering to the principles of ALARA. CT DOSE: 788.63 mGycm FINDINGS: No intra or extra-axial mass lesions are visualized. There is no CT evidence of acute cortical infarction. There is no evidence of midline shift. There is no acute hemorrhage. No calvarial fractures are visualized. There are patchy white matter hypodensities likely on a small vessel basis. There is no evidence of pathologic ventricular dilatation. There is a probable lacunar infarct in the left lentiform nucleus. There are minor inflammatory changes within the ethmoid sinuses. IMPRESSION: 1. No acute intracranial findings 2. White matter disease slightly greater than expected given the patient's age 3. Suspected lacunar infarct within the left basal ganglia 4. No evidence of acute hemorrhage 5. If symptoms persist, an MRI the brain might be considered in follow-up. Electronically signed by: Alejandro Estes M.D. 06/07/2018 9:10 AM Dictated: 06/07/18906 Transcribed: 06/07/18906 ECG Data Attestation: I personally reviewed and interpreted this ECG as follows: Indication: other (stroke symptoms) Rate (beats per minute): 98 Rhythm: normal sinus Findings: + other (Normal EKG); no ST depression and no ST elevation Blood Pressure Blood Pressure Findings: Elevated blood pressure Blood Pressure Disposition: further management by hospitalist DLUCE Meléndez This is a 47-year-old female who presents emergency department unable to walk with a large left-sided facial droop. Due to the nature of the patient's symptoms she was sent immediately for a CAT scan of the head as well as CTA of the head and neck. I am concerned that the patient had a CVA therefore TPA was mixed however the patient's sister reports that she has been like this since yesterday. For this reason I feel she is not a candidate for TPA. She was discussed with the stroke neurologist who also agreed. The patient was started on aspirin as well as magnesium here in the emergency department. I did discuss the case with the hospitalist service who agreed to admit the patient. Patient's CAT scan of the head is concerning for lacunar infarct. Patient had to be given multiple doses of hydralazine as well as labetalol and put on a nicardipine drip to get her blood pressure lower. Impression & Plan CVA (cerebral vascular accident), Hypertensive emergency Critical Care Time I have personally spent greater than 30 minutes of critical care time in the direct management of this patient. This includes bedside care, interpretation of diagnostic studies, and testing, discussion with consultants, patient, and family members, and other required patient management activities. This 30 minutes is in excess of all separately billable procedures. Critical Care Time: Yes (30) Total Critical Care Time: 30 Discharge Plan Visit Data *Final* Discharge Date/Time: 06/07/18 10:56 Chief Complaint: Neuro Symptoms/Deficit Stated Complaint: STROKE SYMPTOMS ED Provider: Guy Hargrove Discharge Problem: CVA (cerebral vascular accident), Hypertensive emergency Patient Disposition: Admitted As Inpatient Discharge Instructions Interventions: ED Discharge Assessment Last Done: 06/07/18 10:56 Discharge Problem: CVA (cerebral vascular accident) Qualifiers: CVA mechanism: unspecified Qualified Code(s): I63.9 - Cerebral infarction, unspecified The scribe's documentation has been prepared under my direction and personally reviewed by me in its entirety. I confirm that the note above accurately refle cts all work, treatment, procedures, and medical decision making performed by me.
[2018-06-08 06:08] LABS: Basophils # (auto) 0.01 K/uL (0-0.2); Basophils % (auto) 0.1 %; Eosinophils % (auto) 2.1 %; Hematocrit (blood only) 40.4 % (37-47); Hemoglobin 13.5 g/dL (12.0-16.0); Immature Granulocytes # (auto) 0.02 K/uL (0.00-0.02); Immature Granulocytes % (auto) 0.2 %; Lymphocytes # (auto) 2.56 K/uL (1.2-3.4); Mean Corpuscular Hgb Conc 33.4 g/dL (32-36); Mean Corpuscular Volume 92.2 fL (80-100); Mean Platelet Volume 10.5 fL (7.4-10.4); Monocytes # (auto) 0.76 K/uL (0.11-0.59); Neutrophils # (auto) 5.94 K/uL (1.4-6.5); Neutrophils % (auto) 62.6 %; Platelet Count 225 K/uL (130-400); RDW Standard Deviation 44.1 fL (36.4-46.3); Red Blood Count 4.38 M/uL (4.2-5.4); White Blood Count 9.49 K/uL (4.8-10.8)
[2018-06-08 06:34] LABS: BUN Creatinine Ratio 19.1 (10-20); Calcium 8.5 mg/dl (8.5-10.1); Creatinine Clr Calc Pharmacy 107.3 ml/min; Est GFR (Non-African American) 94.1; Potassium 3.7 mmol/L (3.5-5.1)
[2018-06-08] MEDS: LISINOPRIL/HCTZ 20/25MG 1 TAB PO SCH (07:40)
[2018-06-08] MEDS: ATORVASTATIN 40 MG TAB PO SCH (07:40)
[2018-06-08] MEDS: NICOTINE 14 MG/24 HR PATCH TD SCH (07:40)
[2018-06-08] MEDS: ASPIRIN 81 MG ECTAB PO SCH (07:40)
[2018-06-08] MEDS ORDERED: ASPIRIN 81 MG ECTAB PO SCH (09:00)
--- NOTE | 2018-06-08 09:21 | Family Medicine Progress Note ---
Date of Service June 08, 2018 Assessment & Plan (1) Stroke: - Stroke order set completed - Admission Ct showed L. Lacunar infarct within the L basal ganglia however this was determined to be previous injury. - MRI this am demonstrated -Two small acute infarcts, measuring up to 9 mm, within the lateral left thalamus/posterior limb of the left internal capsule. No mass effect. No hemorrhage. -Extensive white matter T2 hyperintense foci which are nonspecific. Differential considerations include age advanced small vessel disease and CADASIL. Demyelinating disease is also within the differential. - Neuro consulted -Request MRI and echo -Repeat fasting Lipids -appreciate recs in light of new MRI findings - Check A1C - Recent lipid panel was done on 06/03/18: total cholesterol =257, Triglycerides = 237, HDL =41, LDL 169, VLDL=47, cholesterol HDL ratio = 6 - Continue asa 81 mg - start atorvastatin 40 mg daily - Allow permissive HTN for now but goal should be SBP 160-180/90-110 until other recs per Neurology. - Continue neuro checks q2H and prn - PT/OT for gait disturbance (2) Benign essential HTN: - Continue to attempt HTN control with lebatolol 5 mg IV prn. Continue lisinopril/HCTZ for now. - Added Amlodipine 5 mg to regimen - ASA 81 mg - Discussed exercise regimen initiation - EKG reviewed and no signs of acute ischemia or ST wave changes - Hx of migraines and headaches likely due to uncontrolled HTN, currently pt denies SALAS, following during inpatient stay. Pt will need follow up closely for HTN. (3) Obesity (BMI 30.0-34.9): - Discussed the absolute necessity of lifestyle modification - Set a goal for 15 minutes of exercise per day - Set a quit date of today for cigerettes -Will review BMR with pt tomorrow (4) Tobacco use: - Cessation encouraged - Nicotine patch ordered - Smoked 1/2 ppd since age 13. (5) DVT prophylaxis: - teds, scds Supervising Physician Co-Signing Physician Notes ATTENDING NOTE I saw the patient with the resident physician and confirmed butts portions of the history and physical exam. I agree with the resident documentation as noted above. Upon our visit with the patient, she has no complaints. Unfortunately she remains quite hypertensive. IMPRESSION CVA Hypertension Tobacco abuse History of Paz's palsy PLAN Agree with addition of aspirin 81 mg daily and atorvastatin 40 mg PT/OT/speech therapy have seen the patient today Continue her current antihypertensive (Prinzide) and add Norvasc 5 mg daily Fasting lipid profile in a.m. MRI of brain as discussed with neurology Discussed importance of tobacco cessation Subjective Pt sitting in bed this morning with her son at the bedside. Overall pt is doing well, she has an optimistic attitude and is motivated to make lifestyle changes. I spent an extensive amount of time counseling her on diet, exercise, and smoking cessation tips and tricks. She is tolerating her diet, voiding, and stooling appropriately. Physical Exam Vital Signs (Past 24 Hours): Last Vital Signs Temp 37.2 C 06/08/18 07:05 Pulse 79 06/08/18 07:05 Resp 16 06/08/18 07:05 BP 150/109 H 06/08/18 07:05 Pulse Ox 97 06/08/18 07:05 Constitutional: WD/WN, vitals as above + obese Eyes: PERRL, conjunctivae normal, anicteric sclerae Neck: trachea midline, no thyromegaly normal visual inspection Respiratory: normal respiratory effort, lungs clear to auscultation Cardiovascular: RRR, no murmur, no edema Gastrointestinal (Abdomen): normal bowel sounds, soft, nontender, no hepatosplenomegaly Skin: no rashes, warm and dry Results & Data Laboratory Results 06/08/18 06/08/18 06/07/18 Range/Units 05:25 05:25 22:04 WBC 9.49 (4.8-10.8) K/uL RBC 4.38 (4.2-5.4) M/uL Hgb 13.5 (12.0-16.0) g/dL Hct 40.4 (37-47) % MCV 92.2 (80-100) fL MCH 30.8 (25-34) pg MCHC 33.4 (32-36) g/dL RDW Std Deviation 44.1 (36.4-46.3) fL RDW Coeff of Chuck 13.0 (11.5-14.5) % Plt Count 225 (130-400) K/uL MPV 10.5 H (7.4-10.4) fL Immature Gran % (Auto) 0.2 % Neut % (Auto) 62.6 % Lymph % (Auto) 27.0 % Dixie % (Auto) 8.0 % Eos % (Auto) 2.1 % Baso % (Auto) 0.1 % Immature Gran # (Auto) 0.02 (0.00-0.02) K/uL Neut # (Auto) 5.94 (1.4-6.5) K/uL Lymph # (Auto) 2.56 (1.2-3.4) K/uL Dixie # (Auto) 0.76 H (0.11-0.59) K/uL Eos # (Auto) 0.20 (0-0.5) K/uL Baso # (Auto) 0.01 (0-0.2) K/uL Sodium 138 (136-145) mmol/L Potassium 3.7 (3.5-5.1) mmol/L Chloride 107 (98-107) mmol/L Carbon Dioxide 26 (21-32) mmol/L Anion Gap 5.0 (3-11) BUN 14 (7-18) mg/dl Creatinine 0.76 (0.6-1.2) mg/dl Est Cr Clr Drug Dosing 107.3 ml/min Est GFR ( Amer) 109.0 Est GFR (Non-Af Amer) 94.1 BUN/Creatinine Ratio 19.1 (10-20) Glucose 88 (70-99) mg/dl Calcium 8.5 (8.5-10.1) mg/dl Troponin I < 0.015 (0-0.045) ng/ml 06/07/18 Range/Units 14:01 WBC (4.8-10.8) K/uL RBC (4.2-5.4) M/uL Hgb (12.0-16.0) g/dL Hct (37-47) % MCV (80-100) fL MCH (25-34) pg MCHC (32-36) g/dL RDW Std Deviation (36.4-46.3) fL RDW Coeff of Chuck (11.5-14.5) % Plt Count (130-400) K/uL MPV (7.4-10.4) fL Immature Gran % (Auto) % Neut % (Auto) % Lymph % (Auto) % Dixie % (Auto) % Eos % (Auto) % Baso % (Auto) % Immature Gran # (Auto) (0.00-0.02) K/uL Neut # (Auto) (1.4-6.5) K/uL Lymph # (Auto) (1.2-3.4) K/uL Dixie # (Auto) (0.11-0.59) K/uL Eos # (Auto) (0-0.5) K/uL Baso # (Auto) (0-0.2) K/uL Sodium (136-145) mmol/L Potassium (3.5-5.1) mmol/L Chloride (98-107) mmol/L Carbon Dioxide (21-32) mmol/L Anion Gap (3-11) BUN (7-18) mg/dl Creatinine (0.6-1.2) mg/dl Est Cr Clr Drug Dosing ml/min Est GFR ( Amer) Est GFR (Non-Af Amer) BUN/Creatinine Ratio (10-20) Glucose (70-99) mg/dl Calcium (8.5-10.1) mg/dl Troponin I < 0.015 (0-0.045) ng/ml Medications Administered Current Inpatient Medications Acetaminophen (Tylenol) 650 mg PO Q4H PRN PRN Reason: Pain Stop: 07/07/18 12:18 Last Admin: 06/08/18 11:35 Dose: 650 mg Documented by: Amlodipine Besylate (Norvasc) 5 mg PO [facility] Stop: 07/08/18 12:44 Aspirin (Ecotrin Ectab) 81 mg PO [facility] Stop: 07/08/18 08:59 Last Admin: 06/08/18 07:40 Dose: 81 mg Documented by: Atorvastatin Calcium (Lipitor) 40 mg PO [facility] Stop: 07/08/18 08:59 Last Admin: 06/08/18 07:40 Dose: 40 mg Documented by: Gadobutrol (Gadavist 30ml) 9 ml IV ONCE PRN PRN Reason: Interaction Checking Stop: 06/12/18 11:01 Last Admin: 06/08/18 11:03 Dose: 9 ml Documented by: Lisinopril/HCTZ (Prinzide 20/25mg) 1 tab PO [facility] Stop: 07/08/18 08:59 Last Admin: 06/08/18 07:40 Dose: 1 tab Documented by: Miscellaneous (Remove Nicoderm Patch) 1 ea N/A HS [facility] Stop: 07/07/18 20:59 Last Admin: 06/07/18 21:09 Dose: 1 ea Documented by: Miscellaneous Information (Pharmacist Discharge Med Rec Consult) 1 ea N/A UD PRN PRN Reason: Consult Stop: 07/07/18 09:57 Nicotine (Nicoderm Cq) 14 mg TD QAM [facility] Stop: 07/07/18 12:29 Last Admin: 06/08/18 07:40 Dose: 14 mg Documented by: Resident Activity Tracking Resident Involvement: Resident Care Provided Care Provided: Adult Hospital Medicine
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
[2018-06-08] MEDS ORDERED: GADOBUTROL 30ML VIAL IV PRN (11:02)
--- NOTE | 2018-06-08 11:15 | Magnetic Resonance Report ---
MRI OF THE BRAIN WITHOUT AND WITH IV CONTRAST CLINICAL HISTORY: Dizziness. Slurred speech. Evaluate for cerebrovascular accident. COMPARISON STUDY: Head CT and CTA of the head June 07, 2018. TECHNIQUE: Utilizing a 1.5 [place] magnet and dedicated coil, multiplanar, multiecho imaging of the br ain was performed pre and postcontrast administration. IV administration of 9 mL of Gadavist contras t was uneventful. FINDINGS: Note is made of 2 small acute infarcts within the lateral aspect of the left thalamus/poste rior limb of the left internal capsule. These measure up to 9 mm. There is no mass effect. There is n o hemorrhage. Several old lacunar infarcts are noted, including within the bilateral basal ganglia. V entricular system is normal. The basilar cisterns are patent. There are no extra axial collections. T here is no intracranial mass or pathologic enhancement. Flow-voids for the major intracranial vessels are present. Extensive white matter T2 hyperintense foci are noted, greater than expected for age. C alvarial signal is maintained. There is mild ethmoid sinus mucosal thickening. A 1.5 cm right parotid gland lesion is noted. IMPRESSION: 1. Two small acute infarcts, measuring up to 9 mm, within the lateral left thalamus/posterior limb of the left internal capsule. No mass effect. No hemorrhage. 2. No intracranial mass or pathologic enhancement. 3. Extensive white matter T2 hyperintense foci which are nonspecific. Differential considerations inc lude age advanced small vessel disease and CADASIL. Demyelinating disease is also within the differen tial. 4. Indeterminate 1.5 cm right parotid gland lesion. Electronically signed by: Nain Patel M.D. 06/08/2018 11:14 AM
[2018-06-08] MEDS: ACETAMINOPHEN 325 MG TAB PO PRN ×2 (11:35→17:42)
[2018-06-08] MEDS ORDERED: PERFLUTREN LIPID MICROSPHERE (DEFINITY) IV ONE (14:19)
[2018-06-08] MEDS: AMLODIPINE BESYLATE 5 MG TAB PO SCH (14:20)
[2018-06-09 05:56] LABS: Basophils # (auto) 0.01 K/uL (0-0.2); Basophils % (auto) 0.1 %; Eosinophils # (auto) 0.15 K/uL (0-0.5); Eosinophils % (auto) 1.4 %; Hematocrit (blood only) 41.8 % (37-47); Hemoglobin 14.1 g/dL (12.0-16.0); Immature Granulocytes # (auto) 0.04 K/uL (0.00-0.02); Immature Granulocytes % (auto) 0.4 %; Lymphocytes # (auto) 2.21 K/uL (1.2-3.4); Lymphocytes % (auto) 20.9 %; Mean Corpuscular Hgb Conc 33.7 g/dL (32-36); Mean Corpuscular Volume 91.7 fL (80-100); Mean Platelet Volume 10.4 fL (7.4-10.4); Monocytes # (auto) 0.87 K/uL (0.11-0.59); Monocytes % (auto) 8.2 %; Neutrophils # (auto) 7.31 K/uL (1.4-6.5); Platelet Count 217 K/uL (130-400); RDW Coefficient of Variation 12.9 % (11.5-14.5); RDW Standard Deviation 43.3 fL (36.4-46.3); Red Blood Count 4.56 M/uL (4.2-5.4); White Blood Count 10.59 K/uL (4.8-10.8)
[2018-06-09 06:11] LABS: BUN Creatinine Ratio 18.5 (10-20); Calcium 9.1 mg/dl (8.5-10.1); Creatinine Clr Calc Pharmacy 85.5 ml/min; Est GFR (African American) 83.3; Est GFR (Non-African American) 71.8; Potassium 4.1 mmol/L (3.5-5.1)
--- NOTE | 2018-06-09 07:32 | Family Medicine Progress Note ---
Date of Service June 09, 2018 Assessment & Plan (1) Stroke: - Stroke order set completed - Admission Ct showed L. Lacunar infarct within the L basal ganglia however this was determined to be previous injury. - MRI this 06/08 demonstrated -Two small acute infarcts, measuring up to 9 mm, within the lateral left thalamus/posterior limb of the left internal capsule. No mass effect. No hemorrhage. -Extensive white matter T2 hyperintense foci which are nonspecific. Differential considerations include age advanced small vessel disease and CADASIL. Demyelinating disease is also within the differential. - Neuro consulted -MRI as above, Echo negative for shunt -Repeat fasting Lipids -CVA likely 2/2 to HTN and smoking -No further workup for demylinating disease at this time - Check A1C - Recent lipid panel was done on 06/03/18: total cholesterol =257, Triglycerides = 237, HDL =41, LDL 169, VLDL=47, cholesterol HDL ratio = 6 - Continue asa 81 mg - start atorvastatin 40 mg daily - Continue neuro checks q2H and prn - PT/OT reccomend s inpt rehab, alerted case management (2) Benign essential HTN: - Continue to attempt HTN control with lebatolol 5 mg IV prn. Continue lisinopril/HCTZ for now. - Robust response to amlodipine, normotensive overnight, continue Amlodipine 5 mg - ASA 81 mg - Discussed exercise regimen initiation - EKG reviewed and no signs of acute ischemia or ST wave changes - Hx of migraines and headaches likely due to uncontrolled HTN, currently pt denies SALAS, following during inpatient stay. Pt will need follow up closely for HTN. (3) Obesity (BMI 30.0-34.9): - Discussed the absolute necessity of lifestyle modification - Set a goal for 15 minutes of exercise per day - Set a quit date of today for cigerettes (4) Tobacco use: - Cessation encouraged - Nicotine patch ordered - Smoked 1/2 ppd since age 13. (5) DVT prophylaxis: - teds, scds Full Code Heart Healthy Diet DVT PPX: SCD's Dispo: acute inpt rehab Supervising Physician Co-Signing Physician Notes ATTENDING NOTE I saw the patient with the resident physician and confirmed butts portions of the history and physical exam. I agree with the resident documentation as noted above. Portion of the patient's blood pressure has improved. Unfortunately, once we get her up and walking with physical therapy it is obvious that she has difficulty with balance and subsequently walking. Both physical therapy and Occupational Therapy recommend inpatient rehabilitation. The patient came to the self realization after she completed the balance testing with physical therapy today that her stroke was indeed more serious than she initially realized. She is willing to pursue inpatient rehabilitation. EXAM Blood pressure 131/88 pulse 69, respiratory rate 18 Pleasant alert. No acute distress. Cardiovascular regular. Respirations nonlabored Upper and lower extremity strength is subjectively symmetrical Balance testing was not performed though results noted in physical therapy note. IMPRESSION CVA Hypertension, improved Dyslipidemia Tobacco abuse History of Paz's palsy PLAN Continue aspirin 81 mg daily atorvastatin 40 mg daily Recheck fasting lipid profile and ALT in 4-6 weeks. Consult case management for inpatient debilitation Continue Prinzide and Norvasc; monitor blood pressure Discussed importance of tobacco cessation Subjective Pt sitting in bed today with her friends surrounding her. pt reports no acute events overnight. she is somewhat in denial about the severity of her symptoms. Dr. Cruz and I spent time counseling her on outpt vs inpt rehab. Pt and OT rafiqals recommend Inpt rehab, spoke to case management. Otherwise pt is tolerating her diet, voiding , stooling, and sleeping well. Physical Exam Vital Signs (Past 24 Hours): Last Vital Signs Temp 36.7 C 06/09/18 06:56 Pulse 71 06/09/18 06:56 Resp 18 06/09/18 06:56 BP 117/78 06/09/18 06:56 Pulse Ox 97 06/09/18 06:56 Constitutional: WD/WN, vitals as above + obese Eyes: PERRL, conjunctivae normal, anicteric sclerae Neck: trachea midline, no thyromegaly normal visual inspection Respiratory: normal respiratory effort, lungs clear to auscultation Cardiovascular: RRR, no murmur, no edema Gastrointestinal (Abdomen): normal bowel sounds, soft, nontender, no hepatosplenomegaly Skin: no rashes, warm and dry Neurologic: moves all extremities Cranial Nerves: EOM intact bilaterally, tongue midline and normal hearing Coordination: + abnormal gqjhin-ff-rxcy test Results & Data Laboratory Results 06/09/18 06/09/18 Range/Units 05:39 05:39 WBC 10.59 (4.8-10.8) K/uL RBC 4.56 (4.2-5.4) M/uL Hgb 14.1 (12.0-16.0) g/dL Hct 41.8 (37-47) % MCV 91.7 (80-100) fL MCH 30.9 (25-34) pg MCHC 33.7 (32-36) g/dL RDW Std Deviation 43.3 (36.4-46.3) fL RDW Coeff of Chuck 12.9 (11.5-14.5) % Plt Count 217 (130-400) K/uL MPV 10.4 (7.4-10.4) fL Immature Gran % (Auto) 0.4 % Neut % (Auto) 69.0 % Lymph % (Auto) 20.9 % Bullitt % (Auto) 8.2 % Eos % (Auto) 1.4 % Baso % (Auto) 0.1 % Immature Gran # (Auto) 0.04 H (0.00-0.02) K/uL Neut # (Auto) 7.31 H (1.4-6.5) K/uL Lymph # (Auto) 2.21 (1.2-3.4) K/uL Bullitt # (Auto) 0.87 H (0.11-0.59) K/uL Eos # (Auto) 0.15 (0-0.5) K/uL Baso # (Auto) 0.01 (0-0.2) K/uL Sodium 138 (136-145) mmol/L Potassium 4.1 (3.5-5.1) mmol/L Chloride 107 (98-107) mmol/L Carbon Dioxide 26 (21-32) mmol/L Anion Gap 5.0 (3-11) BUN 18 (7-18) mg/dl Creatinine 0.95 (0.6-1.2) mg/dl Est Cr Clr Drug Dosing 85.5 ml/min Est GFR ( Amer) 83.3 Est GFR (Non-Af Amer) 71.8 BUN/Creatinine Ratio 18.5 (10-20) Glucose 91 (70-99) mg/dl Calcium 9.1 (8.5-10.1) mg/dl Medications Administered Current Inpatient Medications Acetaminophen (Tylenol) 650 mg PO Q4H PRN PRN Reason: Pain Stop: 07/07/18 12:18 Last Admin: 06/08/18 17:42 Dose: 650 mg Documented by: Amlodipine Besylate (Norvasc) 5 mg PO [facility] Stop: 07/08/18 12:44 Last Admin: 06/09/18 08:23 Dose: 5 mg Documented by: Aspirin (Ecotrin Ectab) 81 mg PO [facility] Stop: 07/08/18 08:59 Last Admin: 06/09/18 08:24 Dose: 81 mg Documented by: Atorvastatin Calcium (Lipitor) 40 mg PO [facility] Stop: 07/08/18 08:59 Last Admin: 06/09/18 08:23 Dose: 40 mg Documented by: Gadobutrol (Gadavist 30ml) 9 ml IV ONCE PRN PRN Reason: Interaction Checking Stop: 06/12/18 11:01 Last Admin: 06/08/18 11:03 Dose: 9 ml Documented by: Lisinopril/HCTZ (Prinzide 20/25mg) 1 tab PO [facility] Stop: 07/08/18 08:59 Last Admin: 06/09/18 08:24 Dose: 1 tab Documented by: Miscellaneous (Remove Nicoderm Patch) 1 ea N/A HS [facility] Stop: 07/07/18 20:59 Last Admin: 06/08/18 21:12 Dose: 1 ea Documented by: Miscellaneous Information (Pharmacist Discharge Med Rec Consult) 1 ea N/A UD PRN PRN Reason: Consult Stop: 07/07/18 09:57 Nicotine (Nicoderm Cq) 14 mg TD [facility] Stop: 07/07/18 12:29 Last Admin: 06/09/18 11:38 Dose: Not Given Documented by: Resident Activity Tracking Resident Involvement: Resident Care Provided Care Provided: Adult Hospital Medicine
[2018-06-09] MEDS: ATORVASTATIN 40 MG TAB PO SCH (08:23)
[2018-06-09] MEDS: AMLODIPINE BESYLATE 5 MG TAB PO SCH (08:23)
[2018-06-09] MEDS: LISINOPRIL/HCTZ 20/25MG 1 TAB PO SCH (08:24)
[2018-06-09] MEDS: ASPIRIN 81 MG ECTAB PO SCH (08:24)
[2018-06-09] MEDS: NICOTINE 14 MG/24 HR PATCH TD SCH (11:38)
--- NOTE | 2018-06-09 11:41 | Neurology Progress Note ---
Date of Service June 09, 2018 Assessment & Plan (1) CVA (cerebral vascular accident): Two small acute ischemic infarcts within the left cerebral hemisphere. Patient has a very mild right upper extremity pronator drift and dysmetria with [id number] related to these acute infarcts. Although she had presented with some the speech difficulties, dysarthria or possibly aphasia, this issue has resolved. CT angiography of the head and neck revealed mild narrowing within the cavernous segment of the left ICA but was otherwise unremarkable. No evidence for a hemodynamically significant stenosis. This patient has been significantly hypertensive recently which is probably the primary risk factor for her stroke. Her blood pressure is much improved today. She is also a smoker which would be an additional stroke risk factor. Smoking cessation was discussed with the patient. Given her mild degree of neurological deficit at this time she probably would not require inpatient rehabilitation. Follow-up with PT/OT. (2) Cerebrovascular disease: This patient's brain MRI also reveals extensive chronic cerebral vascular disease. Demyelinating disease and CADASIL have also been suggested in the differential diagnosis according to the interpreting radiologist. She denies a family history of stroke or TIA in either parent. She does seem to have significant risk factors for cerebral vascular disease including smoking and poorly-controlled hypertension. CADASIL would seem unlikely. Demyelinating disease may not be completely excluded although her current presentation is much more consistent with stroke. Patient should continue with daily low-dose aspirin and atorvastatin. Again, smoking cessation will be important. I would not pursue additional workup for demyelinating disease or multiple sclerosis at this point in time. The possibility of demyelinating disease can be further explored as an outpatient if necessary. Subjective Follow-up for stroke The patient complains of mild weakness with the right hand as well as a mild headache. She denies any vision change or word-finding difficulty at this time. Constitutional: no fever Eyes: no blind spots and no diplopia Cardiovascular: no palpitations Neurologic: as per Subjective / HPI and + localized weakness; no abnormal speech Physical Exam Vital Signs (Past 24 Hours): Last Vital Signs Temp 36.9 C 06/09/18 10:51 Pulse 69 06/09/18 10:51 Resp 18 06/09/18 10:51 BP 131/88 06/09/18 10:51 Pulse Ox 96 06/09/18 10:51 Physical Exam: This is the patient is alert and fully oriented. Recent remote memory intact. Attention and concentration normal. Patient is able to name objects and repeat phrases without difficulty. She reads text without difficulty.Patient exhibits an age-appropriate fund of knowledge. Visual rodrigues full to confrontation. Pupils equal round react to light and accommodation. Eye movements normal. Facial sensation intact. There is mild to moderate chronic weakness of the left upper and lower facial musculature (described previously) hearing intact bilaterally. Palate elevates to midline. Shoulder shrug intact. Tongue protrudes to midline. There is mild dysmetria of gxxkck-gq-orwo on the right and heel to morales on the right. No dysmetria with udlfnj-fj-pnqz or rqtf-te-ercu on the left. There is no dysdiadochokinesia. Pa tient exhibits a mild right upper extremity pronator drift. Otherwise, strength is intact for all 4 limbs. No abnormal movements observed. Results & Data Diagnostic Findings Brain MRI completed yesterday reveals 2 small acute infarcts measuring 9 millimeters within the lateral left thalamus/posterior limb of the internal capsule. No mass effect or hemorrhage. There is extensive chronic T2/FLAIR hyperintensities throughout the cerebral parenchyma. Differential diagnosis includes advanced small vessel ischemic disease versus demyelinating disease, verses CADASIL. Images and report reviewed. (1) CVA (cerebral vascular accident) CVA mechanism: unspecified Qualified Code(s): I63.9 - Cerebral infarction, unspecified
[2018-06-09] MEDS: ACETAMINOPHEN 325 MG TAB PO PRN ×2 (16:15→19:39)
[2018-06-10 06:50] LABS: Basophils # (auto) 0.02 K/uL (0-0.2); Basophils % (auto) 0.2 %; Eosinophils # (auto) 0.21 K/uL (0-0.5); Eosinophils % (auto) 2.2 %; Hematocrit (blood only) 40.4 % (37-47); Hemoglobin 13.9 g/dL (12.0-16.0); Immature Granulocytes # (auto) 0.03 K/uL (0.00-0.02); Immature Granulocytes % (auto) 0.3 %; Lymphocytes # (auto) 2.26 K/uL (1.2-3.4); Lymphocytes % (auto) 23.8 %; Mean Corpuscular Hgb Conc 34.4 g/dL (32-36); Mean Corpuscular Volume 90.4 fL (80-100); Mean Platelet Volume 10.8 fL (7.4-10.4); Monocytes % (auto) 9.5 %; Neutrophils # (auto) 6.07 K/uL (1.4-6.5); Platelet Count 240 K/uL (130-400); RDW Coefficient of Variation 12.7 % (11.5-14.5); RDW Standard Deviation 42.2 fL (36.4-46.3); Red Blood Count 4.47 M/uL (4.2-5.4); White Blood Count 9.49 K/uL (4.8-10.8)
[2018-06-10] MEDS: ACETAMINOPHEN 325 MG TAB PO PRN (07:21)
[2018-06-10 07:32] LABS: BUN Creatinine Ratio 20.3 (10-20); Creatinine Clr Calc Pharmacy 90.3 ml/min; Est GFR (African American) 88.9; Est GFR (Non-African American) 76.7; Potassium 3.6 mmol/L (3.5-5.1)
[2018-06-10] MEDS: AMLODIPINE BESYLATE 5 MG TAB PO SCH (08:38)
[2018-06-10] MEDS: NICOTINE 14 MG/24 HR PATCH TD SCH (08:39)
[2018-06-10] MEDS: ATORVASTATIN 40 MG TAB PO SCH (08:39)
[2018-06-10] MEDS: ASPIRIN 81 MG ECTAB PO SCH (08:39)
[2018-06-10] MEDS: LISINOPRIL/HCTZ 20/25MG 1 TAB PO SCH (08:39)
--- NOTE | 2018-06-10 18:28 | Family Medicine Progress Note ---
Date of Service June 10, 2018 Assessment & Plan (1) Cerebrovascular disease: Stroke Patient with risk factors of hypercholesterolemia, Hypertension, and smoking. Patient appears to be improving, hope to send to intensive rehabilitation with high hopes for a good recovery Patient started on ASA 81 mg Atorvastatin increased to 80 mg due to call for high intensity statin therapy. Will continue with Lisinopril-HCTZ and norvasc Awaiting insurance confirmation for placement (2) H/O Paz's palsy: (3) CVA (cerebral vascular accident): Supervising Physician Co-Signing Physician Notes I personally examined the patient and verified all butts points of history and exam, discussed case, and agree with decision making with Dr Marquez. Feeling okay. Notes that she would like to go to rehab if at all possible. Awaiting insurance approval whenever I first discussed with the patient. Unfortunately later she is denied rehab, I placed a call to appeal but have not yet heard back. Vitals noted, in general she is in no distress, she has a facial droop that appears to be chronic related to her Paz's palsy. Breathing is unlabored no accessory muscle use. Neuro exam otherwise as above. Strokeappears to be related to intracranial atherosclerosis from blood pressure, lipids, and tobacco abuse. Continue secondary risk reduction and PT/OT. Hopefully we can get her to rehab. Otherwise as above Subjective Ana Nevarez is resting comfortably in bed this morning watching nevarez is right. She has no complaints at this time and tells me she is willing to start intensive PT. She had a realization while trying to ambulate with physical therapy that she is not where she needs to be due to her stroke. She is hopeful she will regain function and has been able to exercise in a limited capacity so far with physical therapy. No other issues at this time. Constitutional: no fever, no chills and no fatigue Respiratory: no cough and no dyspnea Cardiovascular: no chest pain, no chest pain at rest, no dyspnea on exertion, no syncope, no calf pain and no claudication Gastrointestinal: no abdominal pain, no nausea and no vomiting Physical Exam Vital Signs (Past 24 Hours): Last Vital Signs Temp 36.7 C 06/10/18 15:32 Pulse 90 06/10/18 15:32 Resp 20 06/10/18 15:32 BP 158/111 H 06/10/18 15:32 Pulse Ox 100 06/10/18 15:32 Constitutional: well developed, well nourished, + obese, cooperative and comfortable; no acute distress, not in distress, not combative and not lethargic Respiratory: normal respiratory effort, lungs clear to auscultation Cardiovascular: RRR, no murmur, no edema Gastrointestinal (Abdomen): normal bowel sounds, soft, nontender, no hepatosplenomegaly Neurologic: normal touch/pain/proprioception, CN's II-XI intact bilaterally and deep tendon reflexes 2+ bilaterally Speech / Cognition: normal speech, no expressive aphasia and no receptive aphasia Motor/Sensory: + pronator drift; no tremor and no asterixis Coordination: + abnormal gxespa-yy-jxty test (delayed, less coordinated than expected bilaterally) Resident Activity Tracking Resident Involvement: Resident Care Provided Care Provided: Adult Hospital Medicine (1) CVA (cerebral vascular accident) CVA mechanism: unspecified Qualified Code(s): I63.9 - Cerebral infarction, unspecified
[2018-06-11] MEDS: ASPIRIN 81 MG ECTAB PO SCH (08:35)
[2018-06-11] MEDS: LISINOPRIL/HCTZ 20/25MG 1 TAB PO SCH (08:36)
[2018-06-11] MEDS: AMLODIPINE BESYLATE 5 MG TAB PO SCH (08:36)
[2018-06-11] MEDS: ATORVASTATIN 40 MG TAB PO SCH (08:36)
[2018-06-11] MEDS: NICOTINE 14 MG/24 HR PATCH TD SCH (08:36)
[2018-06-11] MEDS ORDERED: STROKE PATIENT DISCHARGE STA (13:00)
--- NOTE | 2018-06-11 14:16 | Pharmacy Report ---
Pharmacist Stroke Counseling - Date of Service June 11, 2018 - Scope: Pharmacy has been consulted to provide medication discharge counseling for this patient admitted with [ischemic stroke] [hemorrhagic stroke] [transient ischemic attack] as per the Pharmacist Discharge Counseling for Stroke Patients J Luis siegel - Medications on Discharge: Home Medications Medication Instructions Recorded Confirmed aspirin 81 mg PO QAM 06/07/18 06/07/18 New Rx's Medication Instructions Recorded amlodipine [Norvasc] 5 mg PO QAM 30 Days #30 tab 06/11/18 atorvastatin 80 mg PO DAILY #30 tab 06/11/18 losartan-hydrochlorothiazide 1 tab PO DAILY #30 tab 06/11/18 - Action: The above medications, specifically ones for stroke treatment/prophylaxis, have been reviewed in detail with the patient and/or patient veterans service representative(s) prior to discharge. This includes indication, common adverse reactions, drug interactions, and medication administration. Medication counseling has been employed using the teach-back method to ensure understanding. - Outcome: The patient and/or patient veterans service representative(s) have demonstrated understanding of the medications. Please note, they are aware that the pharmacist will call them within 72 hours post-discharge to confirm that the appropriate medications are being taken and answer any further medication related questions the patient might have at that time. Contact information Individual to be contacted: patient Relationship to patient (if applicable): n/a Phone number: [phone] Best time to call: anytime - she may be in rehab/not sure time Additional comments: Patient friendly to talk with today. Noticed when reviewing medication list on discharge both lisinopril/HCTZ and losartan/HCTZ ordered. Contacted doctor who states patient developed cough on lisinopril/HCTZ so he plans to change to losartan/HCTZ on discharge. He was then able to update on medication list. Told patient that she will no longer be on the lisinopril/HCTZ and to make sure that she puts that pill bottle in a separate area from her medications. Told her that the losartan/HCTZ replaced this medication. Patient demonstrated understanding of switch. Patient asked if the doctor prescribed her nicotine patch on discharge, stated that it was not and she said she may ask her provider. Mentioned that they do carry OTC - she will look into. No other concerns/questions on interview. Provided patient with pill box and she is aware we will call her in a couple days. Thank you for allowing pharmacy to be involved in the care of this patient. Please call [phone] or [phone] with any additional questions
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
--- NOTE | 2018-06-13 13:50 | Pharmacy Report ---
Pharmacist Post D/C Phone Note - Phone Note: Date of phone call: June 13, 2018. Individual with whom pharmacist spoke to: ALBIN KONG The following questions were reviewed during the phone call with responses listed below each: The patient and/or patient service support representative(s) were unable to be reached for a follow-up phone call within the 72 hour time frame. Discharge counseling pharmacist contact information has already been provided to the patient should questions arise. Thank you for allowing us to be involved in the care of this patient. - Home Medications: Home Medications Medication Instructions Recorded Confirmed aspirin 81 mg PO QAM 06/07/18 06/07/18 New Rx's Medication Instructions Recorded amlodipine [Norvasc] 5 mg PO QAM 30 Days #30 tab 06/11/18 atorvastatin 80 mg PO DAILY #30 tab 06/11/18 losartan-hydrochlorothiazide 1 tab PO DAILY #30 tab 06/11/18
== END 2018-06-11 14:04 | disposition home or self-care (01) | DRG 66 ==
LOC: ED 08:49 → SUATTDRO 10:02 → 2S 10:02